=== PATIENT | male | born 1990 | race Hispanic/Latino ===

== ENCOUNTER 2017-10-07 10:57 | Day surgery (SDC) | payer MEDICARE, MEDICAID ==
[~2017-10-07] VITALS: Ht 160 cm; Wt 58.1 kg
[~2017-10-07 10:57] MED LIST: ACIDOPHILU3 PEG; ALENDRONATE35 MG PEG; BISACODYL10 M1 RE; BUDESONID2 IN; DIOCTO50 MG/5 ML PEG; FAMOTIDINE20 M1 PEG; FERREX 150150 MG PEG; FLUTICASONE50 MCG; GLYCOPYRROLATE1 MG PEG; IPRATROPIU0.5 MG/3 M IN; MILK OF MAG30 ML/UDC PO; PROMETHAZINE25 M1 RE; PROVENTIL0.083 % IN; ROBAFEN100 MG/51 PEG; SIMVASTATIN20 MG PL; SUCRALFATE1 GM PEG; TYLENOL325 MG PEG; VITAMIN A & D EX; VITAMIN D31000 UNI1 PEG; [UNRECOGNIZED DRUG - MIXTURE] PEG; [UNRECOGNIZED DRUG - OTHER] PEG
[2017-10-07] MEDS ORDERED: BACLOFEN10 MG PO (12:06)
[2017-10-07] MEDS ORDERED: TAMSULOSIN HCL0.4 MG PO (12:06)
[2017-10-07 14:26] VITALS: BP 126/57
== END 2017-10-07 14:31 | disposition other institution (70) ==
LOC: ENDO 10:57 → ORM 11:30 → ENDO 14:31 → ORM 16:00
PROVIDERS: ATTEND Internal Medicine Gastroenterology
PROC: 0DH63UZ Insertion of Feeding Device into Stomach, Percutaneous Approach (ICD-10-PCS; principal; 2017-10-07)
PROC: 0DB48ZX Excision of Esophagogastric Junction, Via Natural or Artificial Opening Endoscopic, Diagnostic (ICD-10-PCS; 2017-10-07)
PROC: 0DB68ZX Excision of Stomach, Via Natural or Artificial Opening Endoscopic, Diagnostic (ICD-10-PCS; 2017-10-07)
DX: K94.23 Gastrostomy malfunction (principal); K29.70 Gastritis, unspecified, without bleeding; K22.10 Ulcer of esophagus without bleeding; K22.5 Diverticulum of esophagus, acquired; G80.9 Cerebral palsy, unspecified; K31.7 Polyp of stomach and duodenum; Q40.8 Other specified congenital malformations of upper alimentary tract; Q40.2 Other specified congenital malformations of stomach